=== PATIENT | female | born 1955 | race Two or more races ===

== ENCOUNTER → 2017-07-28 | Outpatient (CLI) | payer BC ==
[~2017-07-28] MED LIST: GADOBUTROL 10 ML VIAL IVP ONE
== END ==
LOC: FIMAGING 10:08
PROVIDERS: ATTEND Internal Medicine Hematology & Oncology
DX: N60.11 Diffuse cystic mastopathy of right breast (principal); Z85.3 Personal history of malignant neoplasm of breast
CPT/HCPCS: 0159T; 77059; A9585; C8908

== ENCOUNTER → 2017-08-07 | Outpatient (CLI) | payer BC | LOC: FIMAGING 13:46 | PROVIDERS: ATTEND Internal Medicine Hematology & Oncology | DX: Z13.820 Encounter for screening for osteoporosis (principal); M85.89 Other specified disorders of bone density and structure, multiple sites ==

== ENCOUNTER → 2017-08-18 | Outpatient (CLI) | payer BC | LOC: FIMAGING 07:41 | PROVIDERS: ATTEND Surgery | PROC: C71M1ZZ Planar Nuclear Medicine Imaging of Trunk Lymphatics using Technetium 99m (Tc-99m) (ICD-10-PCS; principal; 2017-08-18) | DX: C50.411 Malignant neoplasm of upper-outer quadrant of right female breast (principal) | CPT/HCPCS: 78195; A9520 ==

== ENCOUNTER → 2018-06-18 | Outpatient (CLI) | payer BC | LOC: FIMAGING 09:49 | PROVIDERS: ATTEND Internal Medicine Hematology & Oncology | DX: Z12.31 Encounter for screening mammogram for malignant neoplasm of breast (principal); Z80.3 Family history of malignant neoplasm of breast ==

== ENCOUNTER → 2018-12-17 | Outpatient (CLI) | payer OTHER, BC | LOC: FIMAGING 11:03 | PROVIDERS: ATTEND Internal Medicine Hematology & Oncology | DX: N63.10 Unspecified lump in the right breast, unspecified quadrant (principal); R92.2 Inconclusive mammogram ==